=== PATIENT | female | born 1940 | race Caucasian/White ===

== ENCOUNTER → 2016-12-11 | Outpatient (CLI) | payer MEDICARE, BC ==
[~2016-12-11] MED LIST: GABA-585 PO; IOHEXOL 240 MG/ML 50ML VIAL. PO ONE; IOHEXOL 300 MG/ML 100ML VIAL. IV ONE; PIOG1TAB24 PO; SIMV40TA3 PO; VALS1TAB8 PO
--- NOTE | 2016-12-11 11:45 | KCIC ---
Examination: CT of the abdomen pelvis with oral and IV contrast HISTORY: History of stomach pain, abdominal pain, bloating TECHNIQUE: Axial CT images of the abdomen pelvis were performed with oral and IV contrast. Coronal and sagittal reformats are performed. Exposure: One or more of the following individualized dose reduction techniques were utilized for this examination: 1. Automated exposure control 2. Adjustment of the mA and/or kV according to patient size 3. Use of iterative reconstruction technique. Findings: The visualized bibasilar lungs grossly appears unremarkable. No evidence of free air identified in the abdomen. The visualized liver, adrenals grossly appears unremarkable. Calcified granulomas identified in the spleen. Small hiatal hernia is noted. The stomach is mildly distended. The appendix is normal. Feces and gas noted in the colon. Urinary bladder is mildly distended. The visualized uterus, adnexa grossly appears unremarkable. Bilateral kidneys enhance symmetrically. The gallbladder is mildly distended. There is moderate fatty atrophic changes of the pancreas. The bilateral kidneys enhance symmetrically. The caliber of the aorta grossly appears unremarkable. Moderate aortic atherosclerosis. Mild degenerative changes lumbar spine. There is mild 2 mm anterolisthesis of L4 on L5. Moderate facet hypertrophic degenerative disease in the lumbar spine. IMPRESSION: 1. Moderate fatty atrophic appearance of the pancreas. Other very less likely possibility would be pancreatitis. Correlation with lipase levels can be considered. 2. Small hiatal hernia. Report was called to patient's physician office nurse Cyndi at time of dictation. Electronically signed by: Rojelio Lorenzana MD (12/11/2016 11:41 AM) [id number]
== END | disposition home or self-care (01) ==
LOC: KCIC CT 08:54
PROVIDERS: ATTEND Family Medicine
DX: K44.9 Diaphragmatic hernia without obstruction or gangrene (principal)
CPT/HCPCS: 74177; 82565; Q9966; Q9967

== ENCOUNTER → 2017-06-01 | Outpatient (CLI) | payer MEDICARE, BC ==
[2017-06-01] MEDS: IOHEXOL 240 MG/ML 50ML VIAL. PO (13:13)
[2017-06-01] MEDS: IOHEXOL 300 MG/ML 100ML VIAL. IV (13:13)
== END | disposition home or self-care (01) ==
LOC: KCIC CT 11:35
DX: K44.9 Diaphragmatic hernia without obstruction or gangrene (principal); J45.909 Unspecified asthma, uncomplicated; I10 Essential (primary) hypertension; E11.9 Type 2 diabetes mellitus without complications; Z85.3 Personal history of malignant neoplasm of breast
CPT/HCPCS: 74160; 82565; Q9966; Q9967

== ENCOUNTER → 2017-06-08 | Outpatient (CLI) | payer MEDICARE, BC ==
[2017-06-08 11:42] LABS: C-REACTIVE PROTEIN 1.5 mg/L (0-3.3)
[2017-06-08 12:58] LABS: SEDIMENTATION RATE 35 (0-25)
== END | disposition home or self-care (01) ==
LOC: LAB 11:14
DX: M25.562 Pain in left knee (principal)
CPT/HCPCS: 36415; 85651; 86140

== ENCOUNTER → 2017-08-13 | Outpatient (CLI) | payer MEDICARE, BC | END | disposition home or self-care (01) | LOC: MRI 10:48 | DX: M19.011 Primary osteoarthritis, right shoulder (principal); M75.111 Incomplete rotator cuff tear or rupture of right shoulder, not specified as traumatic; M62.511 Muscle wasting and atrophy, not elsewhere classified, right shoulder | CPT/HCPCS: 73221 ==